=== PATIENT | male | born 1960 | race Caucasian/White ===

== ENCOUNTER 2021-12-13 23:45 | Observation (INO) | payer BC ==
[2021-12-14] MEDS ORDERED: Ondansetron PF 4 MG/2 ML Vial IVP PRN (03:02)
[2021-12-14] MEDS ORDERED: Ondansetron ODT 4 MG TAB PO PRN (03:02)
[2021-12-14] MEDS ORDERED: Acetaminophen 325 MG TAB PO PRN (03:02)
[2021-12-14] MEDS ORDERED: Albuterol Sulfate 2.5 mg/3 ml Neb NEB PRN (03:19)
[2021-12-14] MEDS ORDERED: Aspirin 325 MG TAB PO SCH (03:30)
[2021-12-14] MEDS ORDERED: Cyclobenzaprine 10 MG TAB PO PRN (03:44)
[2021-12-14 04:00] VITALS: BMI 28.6
[2021-12-14] MEDS ORDERED: Gabapentin 300 MG CAP PO SCH (04:00)
[2021-12-14 04:59] LABS: #Lymphocytes 1.2 thou/uL (1.20-3.40); #Monocytes 0.6 thou/uL (0.11-0.59); #Neutrophils 7.2 thou/uL (1.40-6.50); %Basophils 0.1 % (0.0-1.0); %Eosinophils 0.2 % (0.0-10.0); %Lymphocytes 12.9 % (21.0-51.0); %Monocytes 6.3 % (0.0-10.0); %Neutrophils 80.5 % (42.0-75.0); Hemoglobin 15.7 g/dL (14.0-18.0); Mean Corpuscular Hemoglobin 28.9 pg (27.0-31.0); Mean Corpuscular Volume 87.7 fl (78.0-98.0); Platelet Count 221 thou/uL (130-400); RBC Distribution Width 12.6 % (11.5-14.5); Red Blood Cell (RBC) Count 5.42 mill/uL (4.70-6.10); White Blood Cell (WBC) Count 8.9 thou/uL (4.8-10.8)
[2021-12-14 05:24] LABS: ALT (SGPT) 32 U/L (8-55); AST (SGOT) 35 U/L (5-34); Albumin 4.3 g/dL (3.5-5.0); Alkaline Phosphatase 115 U/L (40-110); Anion Gap 13 mmol/L (10-20); BUN (Urea Nitrogen) 26 mg/dL (8.4-25.7); Bilirubin, Total 0.9 mg/dL (0.2-1.2); Calc. Creatinine Clearance 75 mL/min (70-130); Calcium 9.8 mg/dL (7.8-10.44); Carbon Dioxide 27 mmol/L (22-29); Cardiac Risk 4.1 (Less than 4.5); Chloride 104 mmol/L (98-107); Cholesterol 162 mg/dl (< 200 Desired); Estimated GFR 58; Globulin 3.1 g/dL (2.4-3.5); Glucose 107 mg/dL (70-105); HDL Cholesterol 40 mg/dL (>60 Neg Risk); LDL Cholesterol, Calculated 107 mg/dL; Magnesium 2.2 mg/dL (1.6-2.6); Potassium 3.7 mmol/L (3.5-5.1); Protein, Total 7.4 g/dL (6.0-8.3); Sodium 140 mmol/L (136-145); Triglycerides 74 mg/dL (Less than 150)
[2021-12-14 05:48] LABS: Hemoglobin A1c 4.9 % (4.0-6.0)
[2021-12-14] MEDS ORDERED: Mometasone 200 MCG/Formoterol 5 MCG 120 PUFF INHALER INH SCH ×2 (06:30)
[2021-12-14] MEDS ORDERED: Potassium Chloride 8 MEQ TAB PO SCH (08:00)
[2021-12-14] MEDS ORDERED: Aspirin Chewable 81 MG TAB PO SCH (09:00)
[2021-12-14] MEDS ORDERED: Enoxaparin Sodium 40 MG/0.4 ML SYRINGE SC SCH (09:00)
[2021-12-14] MEDS ORDERED: Iopamidol 370 76% 100 ML VIAL ONE (09:42)
[2021-12-14] MEDS: Gabapentin 300 MG CAP PO SCH ×2 (09:48→14:54)
[2021-12-14 15:55] VITALS: BP 181/101; TEMP 98.4
== END 2021-12-14 16:20 | disposition home or self-care (01) ==
LOC: ERS 23:45 → 2SW 12-14 01:18
PROVIDERS: ADMIT Family Medicine; ATTEND Family Medicine
DX: T78.2XXA Anaphylactic shock, unspecified, initial encounter (principal); T78.3XXA Angioneurotic edema, initial encounter; N17.9 Acute kidney failure, unspecified; R77.8 Other specified abnormalities of plasma proteins; R94.31 Abnormal electrocardiogram [ECG] [EKG]; I10 Essential (primary) hypertension; M19.90 Unspecified osteoarthritis, unspecified site; J45.909 Unspecified asthma, uncomplicated; F10.11 Alcohol abuse, in remission; F15.11 Other stimulant abuse, in remission; F16.11 Hallucinogen abuse, in remission; F12.11 Cannabis abuse, in remission; Z87.891 Personal history of nicotine dependence; Z79.82 Long term (current) use of aspirin; Z79.899 Other long term (current) drug therapy; Z20.822 Contact with and (suspected) exposure to COVID-19
CPT/HCPCS: 36415; 71275; 80053; 80061; 82553; 83036; 83735; 84443; 84484; 85025; 93005; 93010; 93017; 96372; 99285; G0378; J1650; Q9967; U0003; U0005

== ENCOUNTER 2025-01-06 04:09 | Inpatient (IN) | payer OTHER ==
[2025-01-06 04:24] LABS: Actual Bicarbonate (HCO3a) 29.4 mEq/L (22-28); Analyzer IN Cardio ER; Base Excess (BEa) 5.4 mEq/L (-2.0 to +3.0); CO2 Tension 40.6 mmHg (35.0-45.0); Calcium, Ionized (arterial) 1.24 mmol/L (1.12-1.30); Hematocrit-ABG 44 % (42.0-52.0); Hemoglobin (Hb) 15.0 g/dL (14.0-18.0); O2 Tension (PaO2), arterial 433.7 mmHg (> 80.0); Potassium - ABG Lab 2.82 mmol/L (3.70-5.30); pH, Arterial 7.477 (7.35-7.45)
[2025-01-06 04:25] LABS: Puncture Site Left Radial artery
[2025-01-06 05:23] LABS: Acetaminophen Less than 10 mcg/mL (Less than 10); Salicylate Less than 8.0 mg/dL (Less than 8.0)
[2025-01-06] MEDS ORDERED: hydrALAZINE 20 MG/ML VIAL SLOW IVP PRN (05:53)
[2025-01-06] MEDS: niCARdipine 25 MG in Sodium Chloride 0.9% 250 ML 250 ML IVPB SCH (08:40)
[2025-01-06] MEDS ORDERED: Fentanyl BOLUS 100 ML IVPB PRN (09:45)
[2025-01-06] MEDS ORDERED: Propofol BOLUS 1,000 MG/100 ML VIAL IV PRN (09:45)
[2025-01-06] MEDS ORDERED: Iopamidol 370 76% 100 ML VIAL ONE (10:39)
[2025-01-06] MEDS: Azithromycin 500 MG in Sodium Chloride 0.9% 250 ML 250 ML IVPB SCH (11:09)
[2025-01-06] MEDS: Pantoprazole 40 MG VIAL IVP SCH (21:52)
[2025-01-06 21:54] LABS: #Basophils 0.05 10x3/uL (0.0-0.2); #Eosinophils 0.21 10x3/uL (0.0-0.7); #Monocytes 0.98 10x3/uL (0.11-0.59); #Neutrophils 7.00 10x3/uL (1.40-6.50); %Basophils 0.5 % (0.0-1.0); %Eosinophils 2.1 % (0.0-10.0); %Lymphocytes 19.2 % (21.0-51.0); %Monocytes 9.6 % (0.0-10.0); %Neutrophils 68.3 % (42.0-75.0); Hematocrit 42.5 % (42.0-52.0); Hemoglobin 14.1 g/dL (14.0-18.0); Mean Corpuscular Hemoglobin 27.5 pg (27.0-31.0); Mean Corpuscular Volume 83.0 fL (78.0-98.0); Platelet Count 191 10x3/uL (130-400); Red Blood Cell (RBC) Count 5.12 mill/uL (4.70-6.10); White Blood Cell (WBC) Count 10.24 10x3/uL (4.8-10.8)
[2025-01-06 22:09] LABS: ALT (SGPT) 19 U/L (Less than 45); AST (SGOT) 26 U/L (11-34); Albumin 3.7 g/dL (3.1-4.5); Alkaline Phosphatase 135 U/L (40-110); Anion Gap 16 mmol/L (10-20); BUN (Urea Nitrogen) 17 mg/dL (8.4-25.7); Bilirubin, Total 1.0 mg/dL (0.3-1.2); Calc. Creatinine Clearance 93 mL/min (70-130); Calcium 9.8 mg/dL (7.8-10.44); Carbon Dioxide 28 mmol/L (23-31); Chloride 103 mmol/L (98-107); Globulin 3.1 g/dL (2.4-3.5); Glucose 105 mg/dL (80-115); Magnesium 2.1 mg/dL (1.6-2.6); Potassium 3.1 mmol/L (3.5-5.1); Sodium 144 mmol/L (136-145)
[2025-01-06] MEDS ORDERED: Magnesium 2 GM/50 ML(in water) 2 GM in Premix 1 BAG IVPB PRN (23:00)
[2025-01-06] MEDS ORDERED: PHOS-NAK 1 PKT PACK PO PRN (23:00)
[2025-01-06] MEDS: Potassium Chloride 20 MEQ in Premix 1 BAG IVPB PRN (23:17)
[2025-01-07] MEDS ORDERED: niCARdipine 50 MG in Sodium Chloride 0.9% 250 ML 250 ML IVPB SCH (01:58)
[2025-01-07] MEDS ORDERED: niCARdipine 25 MG in Sodium Chloride 0.9% 250 ML 250 ML IVPB SCH (02:00)
[2025-01-07] MEDS: niCARdipine 50 MG, Admixture Fee 1 EACH in Sodium Chloride 0.9% 250 ML 230 ML IV SCH (02:22)
[2025-01-07 04:57] LABS: #Basophils 0.03 10x3/uL (0.0-0.2); #Eosinophils 0.13 10x3/uL (0.0-0.7); #Monocytes 0.77 10x3/uL (0.11-0.59); #Neutrophils 7.00 10x3/uL (1.40-6.50); %Basophils 0.3 % (0.0-1.0); %Eosinophils 1.4 % (0.0-10.0); %Lymphocytes 14.8 % (21.0-51.0); %Monocytes 8.2 % (0.0-10.0); %Neutrophils 75.0 % (42.0-75.0); Hematocrit 43.8 % (42.0-52.0); Hemoglobin 14.5 g/dL (14.0-18.0); Mean Corpuscular Hemoglobin 27.7 pg (27.0-31.0); Mean Corpuscular Volume 83.6 fL (78.0-98.0); Platelet Count 237 10x3/uL (130-400); Red Blood Cell (RBC) Count 5.24 mill/uL (4.70-6.10); White Blood Cell (WBC) Count 9.34 10x3/uL (4.8-10.8)
[2025-01-07 05:10] LABS: Anion Gap 15 mmol/L (10-20); BUN (Urea Nitrogen) 15 mg/dL (8.4-25.7); Calc. Creatinine Clearance 88 mL/min (70-130); Calcium 9.6 mg/dL (7.8-10.44); Carbon Dioxide 29 mmol/L (23-31); Chloride 104 mmol/L (98-107); Glucose 107 mg/dL (80-115); Potassium 3.2 mmol/L (3.5-5.1); Sodium 145 mmol/L (136-145)
[2025-01-07 17:34] LABS: Potassium 3.6 mmol/L (3.5-5.1)
[2025-01-08 03:53] LABS: #Basophils Less than 0.03 10x3/uL (0.0-0.2); #Eosinophils 0.09 10x3/uL (0.0-0.7); #Monocytes 1.17 10x3/uL (0.11-0.59); #Neutrophils 8.74 10x3/uL (1.40-6.50); %Basophils 0.2 % (0.0-1.0); %Eosinophils 0.8 % (0.0-10.0); %Lymphocytes 12.5 % (21.0-51.0); %Monocytes 10.2 % (0.0-10.0); %Neutrophils 76.0 % (42.0-75.0); Hematocrit 39.0 % (42.0-52.0); Hemoglobin 12.7 g/dL (14.0-18.0); Mean Corpuscular Hemoglobin 27.5 pg (27.0-31.0); Mean Corpuscular Volume 84.4 fL (78.0-98.0); Platelet Count 236 10x3/uL (130-400); Red Blood Cell (RBC) Count 4.62 mill/uL (4.70-6.10); White Blood Cell (WBC) Count 11.49 10x3/uL (4.8-10.8)
[2025-01-08 04:12] LABS: Anion Gap 14 mmol/L (10-20); BUN (Urea Nitrogen) 25 mg/dL (8.4-25.7); Calc. Creatinine Clearance 79 mL/min (70-130); Calcium 8.7 mg/dL (7.8-10.44); Carbon Dioxide 26 mmol/L (23-31); Chloride 107 mmol/L (98-107); Glucose 173 mg/dL (80-115); Potassium 3.3 mmol/L (3.5-5.1); Sodium 144 mmol/L (136-145)
[2025-01-08 09:10] LABS: Potassium 3.9 mmol/L (3.5-5.1)
[2025-01-08] MEDS: cefTRIAXone\\ROCEPHIN 1 GM in Sodium Chloride 0.9% 100 ML IVPB SCH (10:08)
[2025-01-08 13:44] LABS: Cocaine Metabolite Screen Negative (Negative); THC/Cannabinoid Screen Negative (Negative); Tricyclic Screen Negative (Negative)
[2025-01-09 04:13] LABS: #Basophils 0.03 10x3/uL (0.0-0.2); #Eosinophils 0.22 10x3/uL (0.0-0.7); #Monocytes 1.00 10x3/uL (0.11-0.59); #Neutrophils 9.34 10x3/uL (1.40-6.50); %Basophils 0.3 % (0.0-1.0); %Eosinophils 1.8 % (0.0-10.0); %Lymphocytes 11.3 % (21.0-51.0); %Monocytes 8.3 % (0.0-10.0); %Neutrophils 77.9 % (42.0-75.0); Hematocrit 37.0 % (42.0-52.0); Hemoglobin 11.9 g/dL (14.0-18.0); Mean Corpuscular Hemoglobin 27.5 pg (27.0-31.0); Mean Corpuscular Volume 85.5 fL (78.0-98.0); Platelet Count 203 10x3/uL (130-400); Red Blood Cell (RBC) Count 4.33 mill/uL (4.70-6.10); White Blood Cell (WBC) Count 12.00 10x3/uL (4.8-10.8)
[2025-01-09 04:19] LABS: Anion Gap 14 mmol/L (10-20); BUN (Urea Nitrogen) 21 mg/dL (8.4-25.7); Calc. Creatinine Clearance 111 mL/min (70-130); Calcium 8.7 mg/dL (7.8-10.44); Carbon Dioxide 26 mmol/L (23-31); Chloride 107 mmol/L (98-107); Glucose 112 mg/dL (80-115); Potassium 3.8 mmol/L (3.5-5.1); Sodium 143 mmol/L (136-145)
[2025-01-10 05:32] LABS: #Basophils Less than 0.03 10x3/uL (0.0-0.2); #Eosinophils 0.38 10x3/uL (0.0-0.7); #Monocytes 0.68 10x3/uL (0.11-0.59); #Neutrophils 4.60 10x3/uL (1.40-6.50); %Basophils 0.3 % (0.0-1.0); %Eosinophils 5.6 % (0.0-10.0); %Lymphocytes 16.3 % (21.0-51.0); %Monocytes 10.0 % (0.0-10.0); %Neutrophils 67.4 % (42.0-75.0); Hematocrit 37.8 % (42.0-52.0); Hemoglobin 11.7 g/dL (14.0-18.0); Mean Corpuscular Hemoglobin 27.1 pg (27.0-31.0); Mean Corpuscular Volume 87.7 fL (78.0-98.0); Platelet Count 174 10x3/uL (130-400); Red Blood Cell (RBC) Count 4.31 mill/uL (4.70-6.10); White Blood Cell (WBC) Count 6.82 10x3/uL (4.8-10.8)
[2025-01-10 05:53] LABS: Anion Gap 12 mmol/L (10-20); BUN (Urea Nitrogen) 22 mg/dL (8.4-25.7); Calc. Creatinine Clearance 113 mL/min (70-130); Calcium 9.0 mg/dL (7.8-10.44); Carbon Dioxide 25 mmol/L (23-31); Chloride 107 mmol/L (98-107); Glucose 100 mg/dL (80-115); Potassium 4.2 mmol/L (3.5-5.1); Sodium 140 mmol/L (136-145)
[2025-01-10 18:03] LABS: Anion Gap 17 mmol/L (10-20); BUN (Urea Nitrogen) 17 mg/dL (8.4-25.7); Calc. Creatinine Clearance 124 mL/min (70-130); Calcium 10.0 mg/dL (7.8-10.44); Carbon Dioxide 26 mmol/L (23-31); Chloride 104 mmol/L (98-107); Glucose 104 mg/dL (80-115); Potassium 4.2 mmol/L (3.5-5.1); Sodium 143 mmol/L (136-145)
[2025-01-10] MEDS: Enoxaparin 40 MG (0.4 mL) SYRINGE SC SCH (20:48)
[2025-01-10] MEDS: Mupirocin 1 GM TUBE NASAL DECOLONIZATION NASAL SCH (20:49)
[2025-01-10] MEDS: Melatonin 3 MG TAB PO SCH (22:23)
[2025-01-11 03:56] LABS: #Basophils 0.04 10x3/uL (0.0-0.2); #Eosinophils 0.19 10x3/uL (0.0-0.7); #Monocytes 0.63 10x3/uL (0.11-0.59); #Neutrophils 6.10 10x3/uL (1.40-6.50); %Basophils 0.5 % (0.0-1.0); %Eosinophils 2.4 % (0.0-10.0); %Lymphocytes 12.2 % (21.0-51.0); %Monocytes 7.9 % (0.0-10.0); %Neutrophils 76.7 % (42.0-75.0); Hematocrit 41.9 % (42.0-52.0); Hemoglobin 13.9 g/dL (14.0-18.0); Mean Corpuscular Hemoglobin 27.5 pg (27.0-31.0); Mean Corpuscular Volume 82.8 fL (78.0-98.0); Platelet Count 212 10x3/uL (130-400); Red Blood Cell (RBC) Count 5.06 mill/uL (4.70-6.10); White Blood Cell (WBC) Count 7.95 10x3/uL (4.8-10.8)
[2025-01-11 04:17] LABS: Anion Gap 16 mmol/L (10-20); BUN (Urea Nitrogen) 14 mg/dL (8.4-25.7); Calc. Creatinine Clearance 148 mL/min (70-130); Calcium 9.7 mg/dL (7.8-10.44); Carbon Dioxide 25 mmol/L (23-31); Chloride 103 mmol/L (98-107); Glucose 98 mg/dL (80-115); Potassium 3.7 mmol/L (3.5-5.1); Sodium 140 mmol/L (136-145)
[2025-01-11] MEDS: hydrALAZINE 20 MG/ML VIAL SLOW IVP PRN (08:04)
[2025-01-11] MEDS: cloNIDine 0.1 MG TAB PO SCH (09:55)
[2025-01-11] MEDS: Melatonin 3 MG TAB PO SCH (22:06)
[2025-01-11] MEDS: diphenhydrAMINE 25 MG CAP PO PRN (22:53)
[2025-01-13 10:18] VITALS: BMI 24.7
[2025-01-13] MEDS: SYSTANE 0.3-0.4% EYE DROPS (30 ML) EA EYE PRN (17:37)
[2025-01-13] MEDS: Acetaminophen 500 MG TAB PO PRN (21:41)
[2025-01-14] MEDS ORDERED: Non-Formulary Item 1 EACH (Diclofenac Sodium [Diclofenac Sodium] 75 MG Tablet.Dr) PO PRN (01:02)
[2025-01-14] MEDS: Methocarbamol 500 MG TAB PO PRN (02:00)
[2025-01-14] MEDS: Ondansetron PF 4 MG/2 ML Vial IVP PRN (05:11)
[2025-01-14 06:00] VITALS: BMI 24.3
[2025-01-14] MEDS ORDERED: Buprenorphine 8mg/Naloxone 2mg per 1 FILM SL SCH (09:00)
[2025-01-14] MEDS: Pantoprazole 40 MG DR.TAB PO SCH (09:20)
[2025-01-14] MEDS: Gabapentin 300 MG CAP PO SCH (09:20)
[2025-01-14] MEDS: Buprenorphine HCl 2 MG SL TAB SL SCH (17:16)
[2025-01-14] MEDS ORDERED: Buprenorphine HCl 2 MG SL TAB SL SCH (21:00)
[2025-01-15 04:39] LABS: #Basophils 0.03 10x3/uL (0.0-0.2); #Eosinophils 0.30 10x3/uL (0.0-0.7); #Monocytes 0.83 10x3/uL (0.11-0.59); #Neutrophils 3.48 10x3/uL (1.40-6.50); %Basophils 0.5 % (0.0-1.0); %Eosinophils 4.8 % (0.0-10.0); %Lymphocytes 25.3 % (21.0-51.0); %Monocytes 13.3 % (0.0-10.0); %Neutrophils 55.8 % (42.0-75.0); Hematocrit 40.6 % (42.0-52.0); Hemoglobin 13.4 g/dL (14.0-18.0); Mean Corpuscular Hemoglobin 27.2 pg (27.0-31.0); Mean Corpuscular Volume 82.5 fL (78.0-98.0); Platelet Count 260 10x3/uL (130-400); Red Blood Cell (RBC) Count 4.92 mill/uL (4.70-6.10); White Blood Cell (WBC) Count 6.24 10x3/uL (4.8-10.8)
[2025-01-15 04:52] LABS: Anion Gap 15 mmol/L (10-20); BUN (Urea Nitrogen) 15 mg/dL (8.4-25.7); Calc. Creatinine Clearance 93 mL/min (70-130); Calcium 9.9 mg/dL (7.8-10.44); Carbon Dioxide 27 mmol/L (23-31); Chloride 101 mmol/L (98-107); Glucose 81 mg/dL (80-115); Potassium 3.5 mmol/L (3.5-5.1); Sodium 139 mmol/L (136-145)
[2025-01-15] MEDS ORDERED: Chlorthalidone 25 MG TAB PO SCH (09:45)
[2025-01-15] MEDS: Lisinopril 5 MG TAB PO SCH (10:01)
[2025-01-15] MEDS: Buprenorphine HCl 2 MG SL TAB SL SCH (10:02)
[2025-01-15 12:36] LABS: Potassium 4.2 mmol/L (3.5-5.1)
[2025-01-15] MEDS: Chlorthalidone 25 MG TAB PO SCH (21:14)
[2025-01-16] MEDS: diphenhydrAMINE 25 MG CAP PO PRN (04:47)
[2025-01-16] MEDS: Lisinopril 10 MG TAB PO SCH (08:17)
[2025-01-16] MEDS ORDERED: Chlorthalidone 25 MG TAB PO SCH (09:00)
[2025-01-16 11:42] VITALS: BP 170/87; TEMP 98.5
== END 2025-01-16 13:49 | disposition home or self-care (01) | DRG 85 ==
LOC: ERS 04:09 → CCU 05:58 → 2SE 01-12 20:05
PROVIDERS: ADMIT Colon & Rectal Surgery; ATTEND Colon & Rectal Surgery
PROC: 4A033R1 Measurement of Arterial Saturation, Peripheral, Percutaneous Approach (ICD-10-PCS; principal; 2025-01-06)
PROC: 5A1955Z Respiratory Ventilation, Greater than 96 Consecutive Hours (ICD-10-PCS; 2025-01-06)
PROC: 3E03329 Introduction of Other Anti-infective into Peripheral Vein, Percutaneous Approach (ICD-10-PCS; 2025-01-08)
DX: S06.360A Traumatic hemorrhage of cerebrum, unspecified, without loss of consciousness, initial encounter (principal); J96.00 Acute respiratory failure, unspecified whether with hypoxia or hypercapnia; F19.139 Other psychoactive substance abuse with withdrawal, unspecified; I10 Essential (primary) hypertension; Z66 Do not resuscitate; M19.90 Unspecified osteoarthritis, unspecified site; W19.XXXA Unspecified fall, initial encounter; Z79.899 Other long term (current) drug therapy; F11.90 Opioid use, unspecified, uncomplicated; F31.9 Bipolar disorder, unspecified; F20.9 Schizophrenia, unspecified; N28.89 Other specified disorders of kidney and ureter; I45.5 Other specified heart block; R13.10 Dysphagia, unspecified; R55 Syncope and collapse; H53.2 Diplopia
CPT/HCPCS: 36415; 36600; 70450; 70553; 71045; 71260; 74018; 74177; 76376; 80048; 80306; 80307; 82805; 83735; 84100; 85025; 93005; 93010; 93306; 94002; 94003; 96365; 96366; G0390; J0360; J0456; J0571; J0696; J1650; J2250; J2270; J2405; J2470; J2704; J3480; J7050; J7120; Q9967